=== PATIENT | male | born 1960 | race Caucasian/White ===

== ENCOUNTER 2020-12-23 20:16 | Emergency (ER) | payer BC ==
[~2020-12-23] VITALS: Ht 188 cm; Wt 131.5 kg
[2020-12-23] MEDS ORDERED: HYDROCODONE/APAP 10MG-325MG TAB PO ONE (21:00)
[2020-12-23] MEDS ORDERED: HYDROCODON-ACE1 EAC9 PO (22:37)
== END 2020-12-23 22:45 | disposition home or self-care (01) ==
LOC: ER 20:54
DX: S52.131A Displaced fracture of neck of right radius, initial encounter for closed fracture (principal); W18.30XA Fall on same level, unspecified, initial encounter; Y93.01 Activity, walking, marching and hiking; E06.3 Autoimmune thyroiditis
CPT/HCPCS: 99283